=== PATIENT | female | born 1990 | race Caucasian/White ===

== ENCOUNTER 2022-02-27 12:58 | Emergency (ER) | payer SELFPAY ==
[2022-02-27] MEDS ORDERED: Acetaminophen 500 MG TAB ONE (14:07)
[2022-02-27] MEDS ORDERED: diphenhydrAMINE 25 MG CAP ONE (14:09)
[2022-02-27] MEDS ORDERED: Ibuprofen 200 MG TAB ONE (14:09)
[2022-02-27] MEDS ORDERED: Oxymetazoline HCl 0.05% (30 ML BOT) ONE (14:31)
[2022-02-27 14:56] LABS: SARS-CoV-2 NAA Rapid Test Not Detected (NotDetected)
== END 2022-02-27 14:35 | disposition home or self-care (01) ==
LOC: ERS 12:58
DX: B34.9 Viral infection, unspecified (principal); Z20.822 Contact with and (suspected) exposure to COVID-19
CPT/HCPCS: 99283